=== PATIENT | female | born 1955 | race Caucasian/White ===

== ENCOUNTER → 2017-01-03 | Outpatient (CLI) | payer BC ==
[~2017-01-03] VITALS: Ht 157.5 cm; Wt 97.1 kg
[~2017-01-03] MED LIST: ATORVASTATIN CA10 MG PO; BISOPROLOL-HCT1 EAC2 PO; LETROZOLE2.5 MG PO; LO-DOSE ASPIRIN81 M2 PO; MELOXICAM15 MG PO; METFORMIN HCL500 MG PO; NAPROXEN500 MG PO; OMEPRAZOLE40 M1 PO; PROBIOTIC1 EAC1 PO; THERA-D2000 UNIT PO; VALSARTAN-HCTZ1 EAC1 PO; VESICARE5 MG PO
[2017-01-03 13:53] LABS: POINT-OF-CARE METER ID UU13113694
== END | disposition home or self-care (01) ==
LOC: AMB 12:53
PROVIDERS: Surgery
PROC: 0DJ08ZZ Inspection of Upper Intestinal Tract, Via Natural or Artificial Opening Endoscopic (ICD-10-PCS; principal; 2017-01-03)
DX: K21.9 Gastro-esophageal reflux disease without esophagitis (principal); K29.70 Gastritis, unspecified, without bleeding; K44.9 Diaphragmatic hernia without obstruction or gangrene; I10 Essential (primary) hypertension; E78.5 Hyperlipidemia, unspecified; Z79.82 Long term (current) use of aspirin; E66.01 Morbid (severe) obesity due to excess calories; Z68.41 Body mass index [BMI] 40.0-44.9, adult
CPT/HCPCS: 82948

== ENCOUNTER 2017-01-11 08:51 | Inpatient (IN) | payer BC ==
[~2017-01-11] VITALS: Ht 157.5 cm; Wt 97.1 kg
[2017-01-11 09:33] LABS: POINT-OF-CARE METER ID UU14174212
[2017-01-11 09:46] VITALS: BP 150/67
[2017-01-11 12:44] VITALS: BP 171/74
[2017-01-11 16:04] VITALS: BP 193/81
[2017-01-11 17:39] LABS: POINT-OF-CARE METER ID UU14162508
[2017-01-11 19:24] VITALS: BP 181/79
[2017-01-11 23:47] VITALS: BP 172/74
[2017-01-12 04:00] VITALS: BP 165/72
[2017-01-12 06:05] LABS: POINT-OF-CARE METER ID UU14162508
[2017-01-12 07:18] LABS: HEMATOCRIT 34.7 % (36.0-46.0); MCH 31.5 PG (29.0-34.0); MCV 92.5 FL (83-99); MEAN PLAT.VOLUME 10.9 uM^3 (9.5-12.4); PLATELET COUNT 226 K/uL (156-360); RBC DIS.WIDTH-SD 47.4 % (39-53); RED BLOOD COUNT 3.75 M/uL (3.80-5.20)
[2017-01-12 07:40] LABS: WHITE BLOOD COUNT 7.5 K/uL (4.1-10.2)
[2017-01-12 07:43] LABS: ANION GAP 11 MEQ/L (2-14); CHLORIDE 100 MEQ/L (99-109); GFR ESTIMATE (CALCULATED) > 59 mL/min/; GLUCOSE 102 mg/dL (70-99); MAGNESIUM 1.8 mg/dl (1.3-2.7); POTASSIUM 4.1 MEQ/L (3.7-5.4); SAMPLE HEMOLYSIS CHECK 0; SAMPLE ICTERIC CHECK 0; SAMPLE LIPEMIA CHECK 0; SODIUM 138 MEQ/L (136-147); UREA NITROGEN (BUN) 19 mg/dL (9-23)
[2017-01-12 08:16] VITALS: BP 176/74
[2017-01-12] MEDS ORDERED: HYDROCODON-ACE1 EAC7 PO (08:24)
== END 2017-01-12 09:51 | disposition home or self-care (01) | DRG 621 ==
LOC: 2SOUTH 08:51 → 2EAST 12:42 → 2SOUTH 14:30 → 2EAST 01-12 09:51
PROVIDERS: Surgery
PROC: 0DNW4ZZ Release Peritoneum, Percutaneous Endoscopic Approach (ICD-10-PCS; principal; 2017-01-11)
PROC: 0DB64Z3 Excision of Stomach, Percutaneous Endoscopic Approach, Vertical (ICD-10-PCS; principal; 2017-01-11)
PROC: 0BQS4ZZ (ICD-10-PCS; principal; 2017-01-11)
DX: E66.01 Morbid (severe) obesity due to excess calories (principal); I10 Essential (primary) hypertension; K44.9 Diaphragmatic hernia without obstruction or gangrene; K66.0 Peritoneal adhesions (postprocedural) (postinfection); E78.5 Hyperlipidemia, unspecified; E78.1 Pure hyperglyceridemia; M19.90 Unspecified osteoarthritis, unspecified site; K21.9 Gastro-esophageal reflux disease without esophagitis; Z85.3 Personal history of malignant neoplasm of breast; Z68.39 Body mass index [BMI] 39.0-39.9, adult
CPT/HCPCS: 80048; 82948; 83735; 84100; 85027; J0131; J0330; J0690; J1100; J1170; J1644; J1650; J1815; J1885; J2250; J2270; J2405; J2710; J3480; J7120; S0020